=== PATIENT | female | born 1995 | race Caucasian/White ===

== ENCOUNTER 2021-05-09 09:50 | Emergency (ER) | payer OTHER, SELFPAY ==
[2021-05-09 09:52] VITALS: BP 142/78; PULSE 80; RESP 16; TEMP 36.6; O2SAT 99; BMI 33.4
--- NOTE | 2021-05-09 10:26 | RAD_ITS ---
STUDY: X-RAY - RIGHT KNEE REASON FOR EXAM: Female, 25 years old. Injury/Pain TECHNIQUE: 4 view(s) of the knee. COMPARISON: None. FINDINGS: The patient is status post anterior cruciate ligament repair. Normal medial femorotibial compartment. Normal lateral femorotibial compartment. Normal patellofemoral articulation. Tiny joint effusion. RAD/Knee 4 or More Views IMPRESSION: No acute abnormality is seen. Tiny joint effusion. Electronically Signed: Jeremy Ewing MD at 11:11 EDT , Service support ,
--- NOTE | 2021-05-09 11:40 | EDS_ITS ---
HPI History of Present Illness HPI Narrative: Patient presents with right knee injury that occurred today. Patient states she was climbing over a fence when she fell and twisted her ankle and then her knee. Patient states that her pain is mostly in her right knee. Patient states it is over the medial aspect of her right knee. Patient describes the pain as aching. Patient states it is worse with any movement. Patient denies any paresthesias or weakness. Patient denies any head injury or loss of consciousness. Patient denies any other injuries. Chief Complaint: Lower Extremity Injury Informant: patient Occured/Mechanism Mechanism/Context: Yes fall Onset/Context/Timing Onset: Today Context: Sudden Onset Timing: Continuous Quality of Pain: Aching Worsened by: Movement Relieved by: Rest Associated Symptoms Associated Symptoms: Negative for Parasthesia, Weakness and Loss of Funtion PFSH [facility] Medical History ACL injury tear Asthma Home Medications NK 05/09/21 [History Last Taken Unknown] Allergy/AdvReac Type Severity Reaction Status Date / Time blueberry Allergy Rash Verified 05/09/21 10:00 grass pollen Allergy Rash Verified 05/09/21 10:00 Social History Smoking Status: Never smoker ROS ROS ED Constitutional Constitutional ED: Denies chills or fever(s) Eyes Eyes: Denies blurry vision or change in vision ENT ENT ED: Denies rhinorrhea or sore throat Cardiovascular Cardiovascular: Denies chest pain or palpitations Respiratory/Chest Respiratory/Chest: Denies cough or dyspnea Gastrointestinal Gastrointestinal: Denies nausea or vomiting Genitourinary Genitourinary ED: Denies dysuria or hematuria Musculoskeletal Musculoskeletal: Denies back pain or neck pain Integumentary Denies abscess or rash Neurologic Neurologic: Denies headache(s) or weakness Allergic/Immunologic Allergic/Immunologic ED: Denies mouth swelling or urticaria EXAM Physical Exam Const Vital Signs: 05/09/21 09:52 Temperature 97.8 F Temperature Source Oral Pulse Rate 80 Respiratory Rate 16 Blood Pressure 142/78 H Blood Pressure Mean 99 Pulse Ox 99 Oxygen Delivery Method Room Air Positive well nourished and well developed General Appearance ED: well developed HEENT atraumatic Neck full ROM Extremity Extremity Narrative: There is tenderness over the medial aspect of the right knee. There is mild laxity with valgus testing. There is no laxity with varus testing. Luis Manuel's test was negative. There is no effusion. There is no obvious deformity. Range of motion was limited in all motions of the right knee secondary to pain. Pedal pulses are equal bilateral. Sensation was intact to light touch in all digits. There is no tenderness over the right ankle. Neuro oriented x3, CN's II-XII intact bilaterally, moves all extremities and no sensory deficits noted Sensorium / Orientation: alert Motor Exam: strength 5/5 throughout Psych mental status grossly normal MDM MDM MDM Narrative Medical decision making narrative: X-rays of the right knee were obtained. There are 4 views. On my interpretation, there is no acute fracture. There is no dislocation. There is a tiny joint effusion. Radiologist also interpreted the x-rays and agrees. Patient was advised of her findings. Patient was instructed to ice and elevate the right knee. Patient was given some restrictions for work. Patient was instructed to follow-up with her primary care physician or Workmen's Comp. clinic in 3 to 5 days. Patient understood and was agreeable with the plan. All questions were answered. Radiography Diagnostic Testing: Clinical Impression(s) from Imaging Studies Knee X-Ray 05/09/21 10:26 IMPRESSION: No acute abnormality is seen. Tiny joint effusion. Electronically Signed: Jeremy Ewing MD at 11:11 EDT , Service support , Discharge Plan Triage Chief Complaint: Lower Extremity Injury ED Provider: Adán Barnes Dx/Rx/DC Orders Clinical Impression: MCL sprain of right knee Instructions: ED Knee Sprain Prescriptions: No Action NK RF: 0 Stand Alone Forms: Work Status Form Primary Care Provider: Care Physician,No Primary Referrals: Care Physician,No Primary [Primary Care Provider] - Clinic,NOW [NON-STAFF] - 3-5 Days Disposition Disposition: Home, Self Care
[2021-05-09] MEDS: Acetaminophen 500 MG Tablet 1000 MG PO (12:23)
[2021-05-09 12:27] VITALS: RESP 18
== END 2021-05-09 12:39 | disposition home or self-care (01) ==
PROVIDERS: Emergency Provider Emergency Medicine
DX: S83.91XA Sprain of unspecified site of right knee, initial encounter (principal); X50.1XXA Overexertion from prolonged static or awkward postures, initial encounter; W19.XXXA Unspecified fall, initial encounter
CPT/HCPCS: 73564; 99285

== ENCOUNTER 2024-03-04 17:03 | Emergency (ER) | payer OTHER, SELFPAY ==
[2024-03-04 17:04] VITALS: BP 159/81; PULSE 85; RESP 18; TEMP 37.1; O2SAT 98
--- NOTE | 2024-03-04 17:30 | CT_ITS ---
EXAM: CT ABDOMEN AND PELVIS WITH INTRAVENOUS CONTRAST CLINICAL INDICATION: bilateral rib pain, pain on inspiration, RUQ PAIN TECHNIQUE: Helically acquired images were obtained of the abdomen and pelvis with intravenous contrast. This CT exam was performed using one or more of the following dose reduction techniques: automated exposure control, adjustment of the mA and/or kV according to patient size, and/or use of iterative reconstruction technique. CONTRAST: IV 100mL [id number] COMPARISON: No relevant prior studies available. FINDINGS: LOWER THORAX: Unremarkable. Lung bases are clear. No cardiomegaly. No significant pericardial effusion. ABDOMEN: LIVER: Unremarkable. Homogeneous. No focal mass. GALLBLADDER AND BILE DUCTS: Unremarkable. No calcified gallstones. No gallbladder distention or wall edema. No intra- or extrahepatic biliary ductal dilation. PANCREAS: Unremarkable. No focal cystic or solid mass. SPLEEN: Unremarkable. Normal size without focal cystic or solid mass. ADRENALS: Unremarkable. No nodules. KIDNEYS AND URETERS: Unremarkable. Normal renal size and position. No hydronephrosis. STOMACH AND BOWEL: Unremarkable. No stomach or bowel distention. No focal inflammatory change. PELVIS: APPENDIX: No evidence of acute appendicitis. BLADDER: Unremarkable. REPRODUCTIVE: Unremarkable as visualized. Tampon in situ. No mass. ABDOMEN and PELVIS: INTRAPERITONEAL SPACE: Unremarkable. No ascites or other fluid collection. No free air. BONES/JOINTS: Unremarkable. No suspicious lytic or blastic abnormality. SOFT TISSUES: Unremarkable. No discrete abdominal or pelvic wall hernia. VASCULATURE: Unremarkable. Abdominal aorta is normal in caliber. LYMPH NODES: Unremarkable. No enlarged lymph nodes. CT/Abdomen/Pelvis W IV Cont ONLY IMPRESSION: Negative CT of the abdomen and pelvis with intravenous contrast. Electronically Signed: Poly Roa MD at 20:20 EDT Reading Location ID and State: [id number] / Tel , Service support ,
--- NOTE | 2024-03-04 17:30 | CT_ITS ---
EXAM: CT CHEST WITHOUT INTRAVENOUS CONTRAST CLINICAL INDICATION: bilateral rib pain, pain on inspiration TECHNIQUE: Helically acquired images were obtained of the chest without intravenous contrast. This CT exam was performed using one or more of the following dose reduction techniques: automated exposure control, adjustment of the mA and/or kV according to patient size, and/or use of iterative reconstruction technique. COMPARISON: No relevant prior studies available. FINDINGS: LUNGS AND PLEURAL SPACES: Unremarkable. No mass. No consolidation or edema. No pleural effusion or thickening. No pneumothorax. HEART: Unremarkable. Heart size is normal. No pericardial effusion. No significant coronary artery calcifications. MEDIASTINUM: Unremarkable. No mediastinal or hilar adenopathy. Esophagus is unremarkable. No hiatal hernia. THYROID: Unremarkable. No thyroid lesions. BONES/JOINTS: Unremarkable. No suspicious lytic or blastic abnormality. VASCULATURE: Unremarkable. Thoracic aorta is non-dilated. CT/Chest without Contrast IMPRESSION: Negative CT chest without intravenous contrast. Electronically Signed: Poly Roa MD at 20:11 EDT Reading Location ID and State: [id number] / Tel , Service support ,
[2024-03-04 17:39] LABS: Absolute Lymphocyte Count 1.91 X10^3/uL (0.83-4.51); Basophil# 0.07 X10^3/uL; Eosinophil# 0.18 X10^3/uL; Eosinophils% 2.7 % (0-5); Hemoglobin 10.8 g/dL (12.0-15.0); Lymphocyte # 1.91 X10^3/ul (0.83-4.51); Lymphocyte % 28.4 % (19-41); Mean Corp Hgb Conc 31.8 g/dL (32-36); Mean Corpuscular Hgb 26.4 pg (27.0-32.0); Mean Corpuscular Volume 83.1 fL (81-99); Mean Platelet Vol. 10.3 fl (6.2-12.0); Monocyte% 8.9 % (0-10); NRBC Flagged by Analyzer 0 % (0-5); Neutrophil # 3.96 X10^3/uL (2.7-7.7); Neutrophil % 58.9 % (47-70); Platelet Count 320 K/mm3 (150-450); RBC Distribution Width CV 14.6 % (11.6-14.6); Red Blood Count 4.09 M/mm3 (4.2-5.4); White Blood Count 6.7 K/mm3 (4.4-11.0)
[2024-03-04 17:59] LABS: ALB/GLOB Ratio 1.2 RATIO (0.9-2.4); AST(SGOT) 57 U/L (15-37); Alanine Aminotransfer ALT/SGPT 55 U/L (13-56); Albumin, Serum 3.8 g/dL (3.2-5.0); Alkaline Phosphatase 61 U/L (45-117); Anion Gap 7 (5-15); BUN 16 mg/dL (7-18); BUN/Creat Ratio 16.1 RATIO (10-20); Calcium,Total 8.9 mg/dL (8.5-10.1); Chloride 110 mmol/L (98-107); Creatinine, Serum 0.99 mg/dL (0.55-1.02); EST Glomerular Filtration Rate 70 mL/min (>60); Est Glom Filt Rate - Afr Amer 84 mL/min (>60); Globulin 3.2 g/dL (2.2-4.2); Glucose 104 mg/dL (74-106); Lipase 42 U/L (13-75); Potassium 3.8 mmol/L (3.5-5.1); Sodium Level 141 mmol/L (136-145)
[2024-03-04 18:20] LABS: Mucous, Urine 0 SEEN /hpf (<or=2+); Red Blood Cells-Urine 0 SEEN /hpf (0-5); White Blood Cells 0 SEEN /hpf (0-5)
[2024-03-04] MEDS: Ketorolac 30 MG/ML Syringe IV (18:44)
[2024-03-04 18:47] LABS: Color, Urine Yellow (Yellow); Glucose, Dipstick Normal (Normal); Ketone-Dipstick 5 mg/dl (Negative); Leukocyte Esterase-Dipstick Negative /ul (Negative); Nitrite-Dipstick Positive (Negative); Occult Blood-Urine 10 /ul (Negative); Protein-Dipstick 15 mg/dl (Negative); Specific Gravity, Urine 1.025 (1.002-1.030); Urine Clarity Clear (Clear); Urine Urobilinogen 4 mg/dl (Normal)
[2024-03-04 18:51] LABS: Urine Bilirubin Dipstick 1 mg/dL (Negative)
[2024-03-04 19:03] LABS: Bacteria RARE /hpf (None Seen); Squamous Epithelial Cells - UA 0-5 SEEN /hpf (5-10)
[2024-03-04 19:04] VITALS: BP 136/94; PULSE 88; RESP 14; O2SAT 100
[2024-03-04 19:08] LABS: Internal QC Validated? YES +Cl - CLEAR BKGD; Pregnancy, Urine Negative Negative
[2024-03-04 20:29] VITALS: BP 122/70; PULSE 60; RESP 18; TEMP 37.2; O2SAT 97
--- NOTE | 2024-03-04 20:36 | EDS_ITS ---
HPI History of Present Illness Chief Complaint: Other, Pain/Inj Narrative Narrative: Patient is a 28-year-old female with past medical history of asthma who presents to the emergency department chief complaint of right rib pain as well as some upper abdominal pain. States that yesterday she was doing some training and noted that she was on her left arm when somebody landed on top of her on the right side causing her pain. She states that it hurts to take a deep breath and attempted to move especially on her right side with her ribs. She states that her vest that she wears for her job aggravates this more. She states that she has never felt pain like this prompting her to come here for further evaluation management. Patient rates her pain a 10 out of 10 with movement and when she is at rest it is a 5 out of 10. Patient denies any other pain anywhere else. [facility] Medical History Asthma ACL injury tear Home Medications ?Medication ?Instructions ?Recorded ?Last Taken ?Type lidocaine 5 % topical patch 1 patch topical DAILY 7 days #7 ea 03/04/24 Unknown Rx (Lidoderm) Allergy/AdvReac Type Severity Reaction Status Date / Time blueberry Allergy Rash Verified 03/04/24 17:04 grass pollen Allergy Rash Verified 03/04/24 17:04 Social History Smoking Status: Never smoker ROS ROS ED ROS Narrative Constitutional: Patient denies headaches, lightheadedness, dizziness, fevers, chills Eyes: Denies change in vision double vision blurry vision Cardiovascular: Denies any chest pain or palpitations Respiratory: Denies cough or wheezing shortness of breath Abdomen: Complains of some right upper abdominal pain denies nausea vomit diarrhea : Denies any urinary symptoms Neurological: Denies numbness, weakness, tingling Musculoskeletal: Complains of right rib pain as noted above Skin: Denies rashes or lesions EXAM Physical Exam Narrative Exam Narrative: General: Patient was lying in bed rest comfortably did not appear to be in acute distress Head: Atraumatic normocephalic Eyes: PERRL bilaterally, EOMI bilateral, no conjunctival injection noted Neck: Soft, supple, trachea midline Cardiovascular: Regular rate and rhythm no murmurs gallops rubs noted Respiratory: Clear to auscultation bilaterally no rales rhonchi wheeze noted Abdomen: Soft, nondistended, tender to palpation of the right upper quadrant no rebound or guarding on exam, bowel sounds present x 4 Musculoskeletal: Patient has tenderness palpation over the lateral right rib cage no midline tenderness palpation of the cervical, thoracic or lumbar spine. All of the bony prominences palpated no pain elicited Extremities: +5/5 strength noted in the bilateral upper and lower extremities, no pedal edema no exam Neurological: Patient is following commands knew that she is at [facility] year is 2023 Skin: Warm, dry, intact Const Vital Signs: 03/04/24 17:04 03/04/24 17:18 03/04/24 19:04 Temperature 98.7 F Temperature Source Temporal Pulse Rate 85 88 Respiratory Rate 18 14 Respiratory Effort Normal Non-Labored Respiratory Pattern Normal Blood Pressure 159/81 H 136/94 H Blood Pressure Mean 107 108 Pulse Ox 98 100 Oxygen Delivery Method Room Air Room Air 03/04/24 20:29 Temperature 98.9 F Temperature Source Pulse Rate 60 Respiratory Rate 18 Respiratory Effort Respiratory Pattern Blood Pressure 122/70 H Blood Pressure Mean 87 Pulse Ox 97 Oxygen Delivery Method MDM MDM MDM Narrative Medical decision making narrative: Patient is a 28-year-old female who presented to the emergency department chief complaint of right rib pain and upper abdominal pain after a injury yesterday while training at work. Patient will have a workup performed here on the differential diagnose includes but limited to rib fractures, liver laceration, pulmonary contusion, musculoskeletal strain. Once workup is obtained reviewed she will be reevaluated. Patient's CBC was reviewed largely unremarkable no leukocytosis noted white blood count normal at 6.7, hemoglobin stable 10.8, platelet count normal at 320. Patient sodium normal 141, potassium normal 3.8, creatinine normal at 0.99. Patient's AST and ALT are 5755 respectively. Patient lipase normal at 42, urinalysis did not reveal any evidence of infection. Patient chest CT did not reveal any acute cardiopulmonary processes no evidence of rib fractures. Patient CT abdomen pelvis with IV contrast showed no acute intra-abdominal findings. On reevaluation the patient she states that she would like to go home at this point time. Patient will be given a work note for light duty and prescription for lidocaine patches will be sent she was encouraged to rotate Tylenol and ibuprofen [id number]. She was encouraged return with worsening symptoms or any concerns. She was encouraged to follow-up with her primary care physician outpatient setting. All question concerns answered she was discharged home in stable condition. Lab Data Labs: Laboratory Results - last 24 hr 03/04/24 03/04/24 17:32 18:15 WBC 6.7 RBC 4.09 L Hgb 10.8 L Hct 34.0 L MCV 83.1 MCH 26.4 L MCHC 31.8 L RDW Std Deviation 44.0 H RDW Coeff of Mirian 14.6 Plt Count 320 MPV 10.3 Immature Gran % (Auto) 0.100 Neut % (Auto) 58.9 Lymph % (Auto) 28.4 Evangeline % (Auto) 8.9 Eos % (Auto) 2.7 Baso % (Auto) 1.0 Absolute Neuts (auto) 4.0 Absolute Lymphs (auto) 1.91 Nucleated RBC % 0 Sodium 141 Potassium 3.8 Chloride 110 H Carbon Dioxide 24.0 Anion Gap 7 BUN 16 Creatinine 0.99 Est GFR (MDRD) Af Amer 84 Est GFR (MDRD) Non-Af 70 BUN/Creatinine Ratio 16.1 Glucose 104 Calcium 8.9 Total Bilirubin 0.40 AST 57 H ALT 55 Alkaline Phosphatase 61 Total Protein 7.0 Albumin 3.8 Globulin 3.2 Albumin/Globulin Ratio 1.2 Lipase 42 Urine Color Yellow Urine Clarity Clear Urine pH 6.0 Ur Specific Art 1.025 Urine Protein 15 H Urine Glucose (UA) Normal Urine Ketones 5 H Urine Occult Blood 10 H Urine Nitrite Positive H Urine Bilirubin 1 H Urine Urobilinogen 4 H Ur Leukocyte Esterase Negative Urine RBC 0 SEEN Urine WBC 0 SEEN Ur Squamous Epith Cells 0-5 SEEN Urine Bacteria RARE Urine Mucus 0 SEEN Urine Test Negative Radiography Diagnostic Testing: Clinical Impression(s) from Imaging Studies Abdomen/Pelvis CT 03/04/24 17:30 IMPRESSION: Negative CT of the abdomen and pelvis with intravenous contrast. Electronically Signed: Poly Roa MD at 20:20 EDT Reading Location ID and State: [id number] / Tel , Service support , Chest CT 03/04/24 17:30 IMPRESSION: Negative CT chest without intravenous contrast. Electronically Signed: Poly Roa MD at 20:11 EDT , Discharge Plan Triage Chief Complaint: Other, Pain/Inj Other Complaint: Abd Pain ED Provider: Mir Mendoza Dx/Rx/DC Orders Clinical Impression: Rib pain on right side Prescriptions: New lidocaine [Lidoderm] 5 % adhesive patch,medicated 1 patch topical DAILY 7 Days Qty: 7 0RF Rx Instructions: leave on most painful area for up to 12 hrs Primary Care Provider: KAREN SOSA Referrals: KAREN SOSA [Other] Activity Restrictions/Additional Instructions: Use the topical lidocaine patches as prescribed. Follow-up with your primary care physician as outpatient setting. Rotate Tylenol and ibuprofen [id number]. Return for worsening symptoms or any concerns. Use incentive spirometry as we discussed here. Print Language: Georgian Disposition Disposition: Home, Self Care
== END 2024-03-04 20:47 | disposition home or self-care (01) ==
PROVIDERS: Emergency Provider Emergency Medicine; Visit Provider Emergency Medicine
DX: R07.81 Pleurodynia (principal); J45.909 Unspecified asthma, uncomplicated
CPT/HCPCS: 71250; 74177; 80053; 81001; 81025; 83690; 85025; 96374; 99284; Q9967; A4216